=== PATIENT | male | born 1960 | race Caucasian/White ===

== ENCOUNTER 2018-10-22 10:53 | Day surgery (SDC) | payer OTHER ==
[2018-10-22] MEDS ORDERED: LR 1,000 ML IV ONE (10:54)
--- NOTE | 2018-10-22 11:19 | PDANEPAE ---
ANE History of Present Illness colonoscopy ANE Past Medical History - Cardiovascular History Hx Hypertension: Yes Hx Arrhythmias: No Hx Chest Pain: No Hx Coronary Artery / Peripheral Vascular Disease: No Hx CHF / Valvular Disease: No Hx Palpitations: No - Pulmonary History Hx COPD: No Hx Asthma/Reactive Airway Disease: No Hx Recent Upper Respiratory Infection: No Hx Oxygen in Use at Home: No Hx Sleep Apnea: No - Neurologic History Hx Cerebrovascular Accident: No Hx Seizures: No Hx Dementia: No - Endocrine History Hx Diabetes: No Hypothyroid: No Hyperthyroid: No Obesity: no - Renal History Hx Renal Disorders: No - Liver History Hx Hepatic Disorders: No - Neurological & Psychiatric Hx Hx Neurological and Psychiatric Disorders: No - Cancer History Hx Cancer: No - Congenital Disorder History Hx Congenital Disorders: No - GI History GERD: mild Hx Gastrointestinal Disorders: No Gastrointestinal History Comment: GERD. Phx colon polyps. hemrroids - Chronic Pain History Chronic Pain: Yes - Surgical History Prior Surgeries: Right arthroscopy x 2. Right broken leg x 2. hernia repair w / mesh. vasectomy ANE Review of Systems Review of Systems: - Exercise capacity Exercise capacity: >=4 METS METS (RN): 3 METS ANE Patient History - NPO status NPO Status: no food or drink >8 hours NPO Since - Liquids (Date): 10/22/18 NPO Since - Liquids (Time): 03:00 NPO Since - Solids (Date): 10/21/18 NPO Since - Solids (Time): 20:00 - Anes Hx Anes Hx: no prior problems - Smoking Hx Smoking Status: Former smoker - Family Anes Hx Family Hx Anesthesia Complications: none. ANE Labs/Vital Signs - Vital Signs Height: 172.72 cm Weight: 72.575 kg ANE Physical Exam - Airway Mallampati Score: Class 2 Mouth exam: normal dental/mouth exam - Pulmonary Pulmonary: no respiratory distress - Cardiovascular Cardiovascular: regular rate and rhythym - ASA Status ASA Status: II ANE Anesthesia Plan Anesthesia Plan: GA with mask, MAC
[2018-10-22] MEDS ORDERED: MIDAZOLAM 2 MG/2 ML VIAL ONE (11:21)
[2018-10-22] MEDS ORDERED: PROPOFOL/EMULSION 500 MG/50 ML BOTTLE IV ONE (11:22)
[2018-10-22] MEDS ORDERED: LIDOCAINE 2% 5 ML SDV ONE (11:22)
[2018-10-22] MEDS ORDERED: fentaNYL 100 MCG/2 ML INJ ONE ×2 (11:22→14:37)
--- NOTE | 2018-10-22 12:41 | PDGENHP ---
History & Physical Chief Complaint: rectal pain History of Present Illness: 58 year old male presents for evaluation of rectal pain. Pertinent Past, Social, Family History: SurgHx: knee. See anesthesiology note for details. Relevant Physical Exam: HEENT: anicteric. CV: RRR +s1s2. Lungs: CTAB. Abd: soft, nt, + bs Cardiorespiratory Assessment: ASA 2
[2018-10-22] MEDS ORDERED: ALBUTEROL 3 ML DEYVIAL IH PRN (12:55)
[2018-10-22] MEDS ORDERED: fentaNYL 100 MCG/2 ML INJ IVP PRN (12:55)
[2018-10-22] MEDS ORDERED: NALOXONE HCL 0.4 MG/ML INJ IVP PRN (12:55)
[2018-10-22] MEDS ORDERED: ACETAMINOPHEN 500 MG TAB PO PRN (12:55)
--- NOTE | 2018-10-22 13:07 | POSTANESTH ---
Post Anesthetic Evaluation Cardiovascular Status: Normal, Stable Respiratory Status: Normal, Stable Level of Consciousness/Mental Status: Can Participate in Eval Pain Control: Adequate, Prn Tx Ordered Nausea/Vomiting Control: Adequate, Prn Tx Ordered Complications Possibly Related to Anesthesia: None Noted
[2018-10-22] MEDS ORDERED: INDOMETHACIN 50 MG SUPP PR PRN (13:09)
[2018-10-22] MEDS ORDERED: NS 500 ML IV SCH (13:15)
--- NOTE | 2018-10-22 13:49 | GIREPORT ---
[facility] Surgical Services - Endoscopy Department Patient Name: Janes Mendoza Procedure Date: 10/22/2018 11:13 AM Patient Type: Outpatient Attending MD/ ER Physician: Marlo Vazquez MD Procedure: Colonoscopy Indications: Lower abdominal pain, Rectal pain Patient Profile: 58 year old male with a history of polyps presents for evaluation of re ctal pain/lower quadrant abdominal pain. Providers: Marlo Vazquez MD Medicines: Monitored Anesthesia Care Complications: No immediate complications. Estimated blood loss: Minimal. Description of Procedure: After obtaining informed consent, the scope was passed under direct vis ion. Throughout the procedure, the patient's blood pressure, pulse, and oxyg en saturations were monitored continuously. The Colonoscope with irrigatio n channel was introduced through the anus and advanced to the cecum, identified by appendiceal orifice and ileocecal valve. The colonoscopy was performed without difficulty. The patient tolerated the procedure well. The quality of the bowel preparation was good. The ileocecal valve, appendi ceal orifice, and rectum were photographed. Findings: The perianal and digital rectal examinations were normal. Pertinent negatives include no palpable rectal lesions. No anal fissure noted. A 6 mm polyp was found in the sigmoid colon. The polyp was sessile. The polyp was removed with a cold snare. Resection and retrieval were compl ete. Diverticula were found in the sigmoid colon. Estimated Blood Loss: Estimated blood loss was minimal. Post Op Diagnosis: - One 6 mm polyp in the sigmoid colon, removed with a cold snare. Resec rob and retrieved. - Diverticulosis in the sigmoid colon. - Etiology? No obvious cause of pain. Recommendation: - Discharge patient to home (with escort). - The signs and symptoms of potential delayed complications were discus sed with the patient. - Patient has a contact number available for emergencies. - Repeat colonoscopy in 5 years for surveillance. - Return to normal activities tomorrow. - Resume previous diet. - Continue present medications. - Return to GI office in 2 weeks. - MRI of the pelvis - Trial of dicyclomine. - Thank you for allowing me to participate in the care of your patient. Attending Participation: I personally performed the entire procedure. Marlo Vazquez MD Marlo Vazquez MD 10/22/2018 1:48:55 PM This report has been signed electronicallyMarlo Vazquez MD Number of Addenda: 0 Note Initiated On: 10/22/2018 11:13 AM Total Procedure Duration Time 0 hours 17 minutes 7 seconds [email or web address]
[2018-10-22] MEDS ORDERED: ACETAMINOPHEN 500 MG TAB ONE (14:12)
[2018-10-22 15:30] VITALS: BP 154/96
== END 2018-10-22 15:30 | disposition home or self-care (01) ==
LOC: FSGY 10:53
PROVIDERS: ATTEND Internal Medicine Gastroenterology
DX: K62.89 Other specified diseases of anus and rectum (principal); K57.30 Diverticulosis of large intestine without perforation or abscess without bleeding; D12.5 Benign neoplasm of sigmoid colon; Z86.010 Personal history of colon polyps; K21.9 Gastro-esophageal reflux disease without esophagitis; I10 Essential (primary) hypertension
CPT/HCPCS: J2250; J2704; J3010

== ENCOUNTER → 2018-10-31 | Outpatient (CLI) | payer OTHER ==
[~2018-10-31] MED LIST: GADOBUTROL 10 ML VIAL IVP ONE
== END ==
LOC: FIMAGING 16:23
PROVIDERS: ATTEND Internal Medicine Gastroenterology
DX: K62.89 Other specified diseases of anus and rectum (principal)
CPT/HCPCS: A9585